=== PATIENT | male | born 1970 | race Caucasian/White ===

== ENCOUNTER 2025-04-18 09:47 | Outpatient (CLI) | payer OTHER, SELFPAY | END 2025-04-18 09:48 | disposition home or self-care (01) | LOC: NFLDREF 04-20 13:48 | PROVIDERS: PCP Physician Assistant Medical; Visit Provider Physician Assistant Medical | DX: Z00.00 Encounter for general adult medical examination without abnormal findings (principal); Z13.228 Encounter for screening for other metabolic disorders; Z13.6 Encounter for screening for cardiovascular disorders; Z13.29 Encounter for screening for other suspected endocrine disorder; Z12.5 Encounter for screening for malignant neoplasm of prostate | CPT/HCPCS: 80053; 80061; 84443; G0103 ==

== ENCOUNTER 2025-05-26 07:57 | Outpatient (CLI) | payer OTHER, SELFPAY ==
--- NOTE | 2025-05-26 09:29 | P.ANES_ITS ---
Anesthesia Charges Start Date/Time Anesthesia Start Date: 05/26/25 Anesthesia Start Time: 08:53 Stop Date/Time Anesthesia Stop Date: 05/26/25 Anesthesia Stop Time: 09:27 Coding CPT Codes CPT Codes: ALLIE LWR INTST NDSC NOS - [id number] ([id number]) P2 - PATIENT W/MILD SYST DISEASE, QK - DIRECTOR OF ACCREDITATION 2-4 CNCRNT ANES PROC, QX - OBSERVER GRAVITY PROSPECTING SVC W/ MD MED DIRECTION
--- NOTE | 2025-05-26 09:29 | W.ANESCHARGE ---
Anesthesia Charges Start Date/Time Anesthesia Start Date: 05/26/25 Anesthesia Start Time: 08:53 Stop Date/Time Anesthesia Stop Date: 05/26/25 Anesthesia Stop Time: 09:27 Coding CPT Codes CPT Codes: ALLIE LWR INTST NDSC NOS - [id number] ([id number]) P2 - PATIENT W/MILD SYST DISEASE, QK - COMPUTER FORENSICS EXAMINER 2-4 CNCRNT ANES PROC, QX - TYRE FITTER SVC W/ MD MED DIRECTION
--- NOTE | 2025-05-26 10:15 | P.ANES_ITS ---
Anesthesia Charges Start Date/Time Anesthesia Start Date: 05/26/25 Anesthesia Start Time: 08:53 Stop Date/Time Anesthesia Stop Date: 05/26/25 Anesthesia Stop Time: 09:27 Coding CPT Codes CPT Codes: ALLIE LWR INTST NDSC NOS - [id number] ([id number]) QK - SERVICE DESK MANAGER 2-4 CNCRNT ALLIE PROC, QX - CHIEF CATALYST OPERATOR SVC W/ MD MED DIRECTION, P2 - PATIENT W/MILD SYST DISEASE
--- NOTE | 2025-05-26 10:15 | W.ANESCHARGE ---
Anesthesia Charges Start Date/Time Anesthesia Start Date: 05/26/25 Anesthesia Start Time: 08:53 Stop Date/Time Anesthesia Stop Date: 05/26/25 Anesthesia Stop Time: 09:27 Coding CPT Codes CPT Codes: ALLIE LWR INTST NDSC NOS - [id number] ([id number]) QK - UTILIZATION REVIEW NURSE 2-4 CNCRNT ALLIE PROC, QX - SCREEN CUTTER AND TRIMMER SVC W/ MD MED DIRECTION, P2 - PATIENT W/MILD SYST DISEASE
== END 2025-05-26 07:58 | disposition home or self-care (01) ==
LOC: OP CLINIC 07:58
PROVIDERS: PCP Physician Assistant Medical; Visit Provider Surgery
DX: Z12.11 Encounter for screening for malignant neoplasm of colon (principal); Z83.719 Family history of colon polyps, unspecified; D12.2 Benign neoplasm of ascending colon; D12.4 Benign neoplasm of descending colon; D12.5 Benign neoplasm of sigmoid colon; D12.8 Benign neoplasm of rectum
CPT/HCPCS: 00811; 00812; 45385; 88305; J2704